=== PATIENT | female | born 1945 | race Caucasian/White ===

== ENCOUNTER → 2018-08-05 | Outpatient (REF) | payer MEDICARE ==
[~2018-08-05] MED LIST: ADLT ASA LOW81 MG PO; ASPIRIN CHEWABL81 MG OR; CALCIUM 1000 + D OR; CO Q-10200 M1 PO; COZAAR50 MG PO; FISH OIL1000 MG PO; LISINOP/HCTZ1 TAB PO; METAMUCIL0.52 GM PO; MULTI VIT PO; OS-CAL 500+D PO; SIMVASTATIN40 MG PO
[2018-08-05 09:23] LABS: HEMOGLOBIN 11.6 g/dl (12.0-16.0); MEAN CELL VOLUME 94.7 fL CALC (80.0-100.0); MEAN CORPUSCULAR HGB 30.5 pG CALC (26.0-32.0); MEAN CORPUSCULAR HGB CONC 32.2 g/L CALC (32.0-36.0); RED BLOOD COUNT 3.8 mill/uL (4.20-5.60); RED CELL DISTRI WIDTH 13.3 % (11.5-15.5)
[2018-08-05 10:13] LABS: ALBUMIN 4.4 g/dL (3.2-5.0); BILIRUBIN, TOTAL 0.6 mg/dL (0.0-1.4); CREATININE 1.1 mg/dL (0.5-1.0); POTASSIUM 4.3 mmol/l (3.5-5.1); TOTAL PROTEIN 7.7 g/dL (6.3-8.2)
[2018-08-05 10:32] LABS: TSH, 3RD GENERATION 2.69 uIU/mL (0.47 - 4.68)
== END | disposition home or self-care (01) ==
LOC: LAB 08:04
PROVIDERS: ATTEND Nurse Practitioner Family
DX: N18.3 Chronic kidney disease, stage 3 (moderate) (principal); D63.1 Anemia in chronic kidney disease; I10 Essential (primary) hypertension

== ENCOUNTER 2024-12-09 08:31 | Observation (INO) | payer MEDICARE ==
[~2024-12-09] VITALS: Ht 175.3 cm; Wt 89.0 kg
[2024-12-09] VITALS (7 sets, daily range): BP systolic 100–119; BP diastolic 48–68
[2024-12-09] MEDS ORDERED: ONDANSETRON HCl 4 MG/2 ML SDV IV ONE (08:45)
[2024-12-09 09:04] LABS: BASO% 0.3 % (0-3); EOS% 0.1 % (0-8); HEMATOCRIT 36.3 % (37.0-47.0); HEMOGLOBIN 11.9 g/dl (12.0-16.0); IMMATURE GRANULOCYTES 0.4 % (0.0-5.0); LYMPH% 16.6 % (15-41); MEAN CELL VOLUME 91.7 fL CALC (80.0-100.0); MEAN CORPUSCULAR HGB 30.1 pG CALC (26.0-32.0); MEAN CORPUSCULAR HGB CONC 32.8 g/dL CAL (32.0-36.0); MONO% 7.4 % (2-13); NEUT# 7.43 thou/uL (2.00-7.15); NEUT% 75.2 % (42-76); RED BLOOD COUNT 3.96 mill/uL (4.20-5.60); RED CELL DISTRI WIDTH 13.8 % (11.5-15.5)
[2024-12-09 09:22] LABS: ALBUMIN 4.8 g/dL (3.2-5.0); ALKALINE PHOSPHATASE 102 u/l (38-126); ANION GAP 15 (6-22 (CALC)); BILIRUBIN, TOTAL 0.6 mg/dL (0.02-1.3); BUN 17 mg/dL (8-23); BUN/CREATININE RATIO 21 (12-20 (CALC)); CARBON DIOXIDE 24 mmol/l (22-30); CHLORIDE 100 mmol/l (95-108); CREATININE 0.8 mg/dL (0.5-1.0); ESTIMATED GFR 75 ML/MIN (>=90 (CALC)); POTASSIUM 3.5 mmol/l (3.5-5.1); SGOT/AST 39 u/l (9-36); SODIUM 136 mmol/l (137-146); TOTAL CHOLESTEROL 196 mg/dl (0-199); TOTAL TRIGLYCERIDES 78 mg/dl (0-149); VLDL CHOLESTROL 16 mg/dl (0-48 (CALC))
[2024-12-09] MEDS ORDERED: MECLIZINE HCL 25 MG/TAB PO ONE (09:25)
[2024-12-09 09:29] LABS: PROTHROMBIN TIME 10.8 SECONDS (9.0-12.5)
[2024-12-09 09:32] LABS: CALCULATED LDLCHOLESTEROL 68 mg/dL (62-129 (CALC)); CHOLESTEROL HDL RATIO 1.8 (<4.4 (CALC)); HDL CHOLESTEROL 112 mg/dL (39.0-59.0)
[2024-12-09] MEDS ORDERED: Polyethylene Glycol 3350 17 GM/PKT PO PRN (12:00)
[2024-12-09] MEDS ORDERED: LACTATED RINGER'S 1,000 ML IV PRN (12:00)
[2024-12-09] MEDS ORDERED: ACETAMINOPHEN 325 MG/TAB PO PRN (12:00)
[2024-12-09] MEDS ORDERED: ONDANSETRON 4 MG/TAB ODT SL PRN (12:00)
[2024-12-09] MEDS ORDERED: MECLIZINE HCL 25 MG/TAB PO PRN (12:00)
[2024-12-09] MEDS ORDERED: AMLODIPINE BESY10 MG PO (12:23)
[2024-12-09] MEDS ORDERED: LOPRESSOR 550 MG/TAB PO (12:23)
[2024-12-09] MEDS ORDERED: ENOXAPARIN SODIUM 40 MG/0.4 ML SYR SC SCH (21:00)
[2024-12-09] MEDS ORDERED: ATORVASTATIN CALCIUM 40 MG/TAB PO SCH (21:00)
[2024-12-09 22:59] LABS: URINE BILIRUBIN - DIPSTICK Negative (NEGATIVE); URINE BLOOD DIPSTICK Negative (NEGATIVE); URINE CLARITY Clear; URINE GLUCOSE - DIPSTICK Negative (NEGATIVE); URINE KETONE Negative (NEGATIVE); URINE LEUK ESTERASE Trace (Negative); URINE NITRITE - DIPSTICK Negative (Negative); URINE PROTEIN - DIPSTICK Negative (NEG-TRACE); URINE SPECIFIC GRAVITY <=1.005; URINE UROBILINOGEN - DIPSTICK 0.2 E.U./dL (0.2)
[2024-12-09 23:03] LABS: URINE COLOR Yellow
[2024-12-10] VITALS (7 sets, daily range): BP systolic 113–124; BP diastolic 46–57
[2024-12-10 05:52] LABS: BASO% 0.4 % (0-3); HEMATOCRIT 31.1 % (37.0-47.0); HEMOGLOBIN 10.3 g/dl (12.0-16.0); IMMATURE GRANULOCYTES 0.1 % (0.0-5.0); LYMPH% 26.6 % (15-41); MEAN CELL VOLUME 93.1 fL CALC (80.0-100.0); MEAN CORPUSCULAR HGB 30.8 pG CALC (26.0-32.0); MEAN CORPUSCULAR HGB CONC 33.1 g/dL CAL (32.0-36.0); MONO% 11.2 % (2-13); NEUT# 3.91 thou/uL (2.00-7.15); NEUT% 58.7 % (42-76); RED BLOOD COUNT 3.34 mill/uL (4.20-5.60)
[2024-12-10 06:03] LABS: BILIRUBIN, TOTAL 0.7 mg/dL (0.02-1.3); CREATININE 0.9 mg/dL (0.5-1.0); POTASSIUM 3.4 mmol/l (3.5-5.1)
[2024-12-10 06:05] LABS: ALBUMIN 3.6 g/dL (3.2-5.0); TOTAL PROTEIN 6.3 g/dL (6.3-8.2)
[2024-12-10] MEDS ORDERED: ASPIRIN 81 MG/TAB PO SCH (09:00)
[2024-12-10] MEDS ORDERED: POTASSIUM CHLORIDE 20MEQ 100 ML IV SCH (14:00)
[2024-12-11 00:21] VITALS: BP 101/49
[2024-12-11 04:22] VITALS: BP 122/61
[2024-12-11 05:34] LABS: EOS% 7.2 % (0-8); HEMATOCRIT 32.2 % (37.0-47.0); HEMOGLOBIN 10.4 g/dl (12.0-16.0); LYMPH% 35.5 % (15-41); MEAN CELL VOLUME 93.6 fL CALC (80.0-100.0); MEAN CORPUSCULAR HGB 30.2 pG CALC (26.0-32.0); MEAN CORPUSCULAR HGB CONC 32.3 g/dL CAL (32.0-36.0); MONO% 12.8 % (2-13); NEUT# 2.66 thou/uL (2.00-7.15); NEUT% 43.5 % (42-76); RED BLOOD COUNT 3.44 mill/uL (4.20-5.60); RED CELL DISTRI WIDTH 14.1 % (11.5-15.5)
[2024-12-11 05:40] LABS: ALBUMIN 3.6 g/dL (3.2-5.0); BILIRUBIN, TOTAL 0.7 mg/dL (0.02-1.3); CREATININE 0.8 mg/dL (0.5-1.0); POTASSIUM 3.7 mmol/l (3.5-5.1); TOTAL PROTEIN 6.2 g/dL (6.3-8.2)
[2024-12-11 07:20] VITALS: BP 126/73
[2024-12-11] MEDS ORDERED: MECLIZINE25 MG PO (10:36)
== END 2024-12-11 12:27 | disposition home or self-care (01) ==
LOC: ED 08:31 → ED-I 10:54 → ED 11:22 → MS2 11:23
PROVIDERS: Family Medicine; ADMIT Internal Medicine; ATTEND Internal Medicine
DX: R42 Dizziness and giddiness (principal); I10 Essential (primary) hypertension; I25.10 Atherosclerotic heart disease of native coronary artery without angina pectoris; E78.5 Hyperlipidemia, unspecified; E04.1 Nontoxic single thyroid nodule
CPT/HCPCS: G0378; J1650; J2405; J3480; Q9967